=== PATIENT | female | born 1995 | race Two or more races ===

== ENCOUNTER 2025-03-02 18:48 | Observation (INO) | payer OTHER, SELFPAY ==
[2025-03-02] VITALS (14 sets, daily range): BP systolic 112; BP diastolic 67; PULSE 75–85; RESP 18–99; TEMP 37; O2SAT 98–99; BMI 35.5
[2025-03-02 19:48] LABS: ROM Kit Lot # 57807112
[2025-03-02 19:49] LABS: ROM Swab Mixed By: KE; Rupture of Fetal Membranes Negative (Negative); Swb Mxed in Solvent 1 min? Yes
== END 2025-03-02 20:26 | disposition home or self-care (01) ==
PROVIDERS: Admitting Provider Obstetrics & Gynecology; Visit Provider Obstetrics & Gynecology
DX: Z34.03 Encounter for supervision of normal first pregnancy, third trimester (principal); Z3A.31 31 weeks gestation of pregnancy
CPT/HCPCS: 59899; 84112